=== PATIENT | female | born 1975 | race Hispanic/Latino ===

== ENCOUNTER 2020-08-22 08:53 | Day surgery (SDC) | payer BC ==
[~2020-08-22] VITALS: Ht 162.6 cm; Wt 95.7 kg
[2020-08-22] MEDS ORDERED: SODIUM CHLORIDE 0.9% 1000ML 1,000 ML IV ONE (09:41)
[2020-08-22 09:51] VITALS: BP 127/87
[2020-08-22] MEDS ORDERED: HYDR12.54 PO (10:19)
[2020-08-22] MEDS ORDERED: METF-446 PO (10:19)
[2020-08-22] MEDS ORDERED: PROPOFOL 10 MG/ML 20ML VIAL IV ONE (10:34)
[2020-08-22 10:44] VITALS: BP 119/73
[2020-08-22 10:50] VITALS: BP 118/73
[2020-08-22 10:55] VITALS: BP 118/69
[2020-08-22 11:00] VITALS: BP 111/65
[2020-08-22 11:05] VITALS: BP 118/65
== END 2020-08-22 11:10 | disposition home or self-care (01) ==
LOC: ENDO 08:53
PROVIDERS: ATTEND Surgery
DX: K21.9 Gastro-esophageal reflux disease without esophagitis (principal); I10 Essential (primary) hypertension; E11.43 Type 2 diabetes mellitus with diabetic autonomic (poly)neuropathy; K31.84 Gastroparesis; E66.01 Morbid (severe) obesity due to excess calories; F17.200 Nicotine dependence, unspecified, uncomplicated; Z79.899 Other long term (current) drug therapy
CPT/HCPCS: 43235; 82948 ×2; A4215; A4221; A4222; A4223; A4606; A4620; A4663; J2704; J7030